=== PATIENT | female | born 1985 | race Caucasian/White ===

== ENCOUNTER 2024-11-04 13:22 | Emergency (ER) | payer SELFPAY ==
[~2024-11-04] VITALS: Ht 177.8 cm; Wt 86.3 kg
[2024-11-04] MEDS: TETanus/Pertussis (Acell)/Diphther VAC/PF (Tdap-Adult) 0.5ml syringe IMVAC ONE (14:06)
[2024-11-04] MEDS: LIDOcaine 1% 30ml preserv. free vial IJ ONE (14:33)
[2024-11-04 15:09] VITALS: BP 133/72; PULSE 64; RESP 15; TEMP 98; O2SAT 98
== END 2024-11-04 15:11 | disposition home or self-care (01) ==
LOC: ER 13:22
DX: S61.211A Laceration without foreign body of left index finger without damage to nail, initial encounter (principal); X58.XXXA Exposure to other specified factors, initial encounter; Y93.89 Activity, other specified; Y92.89 Other specified places as the place of occurrence of the external cause; Y99.8 Other external cause status
CPT/HCPCS: 12001; 90471; 90715; 99283; J7030; A6449